=== PATIENT | female | born 1970 | race Native Hawaiian/Other Pacific Islander ===

== ENCOUNTER 2019-04-04 07:38 | Outpatient (CLI) | payer OTHER ==
[2019-04-04 07:57] LABS: PLATELET COUNT 236 K/uL (152-353)
[2019-04-04 08:19] LABS: POTASSIUM 4.3 mmol/L (3.6-5.2)
== END 2019-04-04 19:36 | disposition home or self-care (01) ==
LOC: LABW 07:38
PROVIDERS: Internal Medicine
DX: E11.9 Type 2 diabetes mellitus without complications (principal); E78.00 Pure hypercholesterolemia, unspecified
CPT/HCPCS: 80053; 80061; 81000; 82043; 82570; 83036; 84439; 84443; 85027

== ENCOUNTER 2019-04-10 14:30 | Outpatient (CLI) | payer OTHER | END 2019-04-10 20:32 | disposition home or self-care (01) | LOC: RAD 14:30 | DX: M54.2 Cervicalgia (principal); M54.5 Low back pain ==

== ENCOUNTER 2019-09-24 08:17 | Day surgery (SDC) | payer OTHER ==
[~2019-09-24] VITALS: Ht 157.5 cm; Wt 79.4 kg
== END 2019-09-24 12:24 | disposition home or self-care (01) ==
LOC: OR 08:17
PROC: 3E0R33Z Introduction of Anti-inflammatory into Spinal Canal, Percutaneous Approach (ICD-10-PCS; principal; 2019-09-24)
PROC: B01BYZZ Fluoroscopy of Spinal Cord using Other Contrast (ICD-10-PCS; 2019-09-24)
DX: M50.123 Cervical disc disorder at C6-C7 level with radiculopathy (principal)
CPT/HCPCS: J1020

== ENCOUNTER 2019-09-26 09:43 | Outpatient (CLI) | payer OTHER | END 2019-09-26 19:17 | disposition home or self-care (01) | LOC: MAMMO 09:43 | DX: Z12.31 Encounter for screening mammogram for malignant neoplasm of breast (principal) ==

== ENCOUNTER 2019-10-22 10:14 | Day surgery (SDC) | payer OTHER ==
[~2019-10-22] VITALS: Ht 30.5 cm; Wt 0.5 kg
== END 2019-10-22 10:53 | disposition home or self-care (01) ==
LOC: OR 10:14
PROC: 3E0R33Z Introduction of Anti-inflammatory into Spinal Canal, Percutaneous Approach (ICD-10-PCS; principal; 2019-10-22)
PROC: B01BYZZ Fluoroscopy of Spinal Cord using Other Contrast (ICD-10-PCS; 2019-10-22)
DX: M50.123 Cervical disc disorder at C6-C7 level with radiculopathy (principal); M50.122 Cervical disc disorder at C5-C6 level with radiculopathy
CPT/HCPCS: J1020

== ENCOUNTER 2019-12-30 09:42 | Outpatient (CLI) | payer OTHER ==
[2019-12-30 10:01] LABS: PLATELET COUNT 283 K/uL (152-353)
[2019-12-30 10:32] LABS: POTASSIUM 4.5 mmol/L (3.6-5.2)
== END 2019-12-30 23:23 | disposition home or self-care (01) ==
LOC: LABW 09:42
PROVIDERS: Internal Medicine
DX: Z00.00 Encounter for general adult medical examination without abnormal findings (principal); I10 Essential (primary) hypertension; E11.9 Type 2 diabetes mellitus without complications; E78.00 Pure hypercholesterolemia, unspecified; R53.83 Other fatigue; R53.81 Other malaise; Z79.899 Other long term (current) drug therapy
CPT/HCPCS: 36415; 80053; 80061; 83036; 84443; 85027

== ENCOUNTER 2020-02-17 08:57 | Outpatient (CLI) | payer OTHER ==
[2020-02-17 09:42] LABS: POTASSIUM 3.9 mmol/L (3.6-5.2)
== END 2020-02-17 19:33 | disposition home or self-care (01) ==
LOC: LABW 08:57
PROVIDERS: ATTEND Internal Medicine
DX: N17.9 Acute kidney failure, unspecified (principal); R10.9 Unspecified abdominal pain
CPT/HCPCS: 36415; 80048; 81000

== ENCOUNTER 2020-03-19 08:48 | Outpatient (CLI) | payer OTHER ==
[2020-03-19 09:26] LABS: PLATELET COUNT 272 K/uL (152-353)
== END 2020-03-19 20:38 | disposition home or self-care (01) ==
LOC: LABW 08:48
PROVIDERS: ATTEND Family Medicine
DX: R53.83 Other fatigue (principal); Z13.220 Encounter for screening for lipoid disorders; E53.8 Deficiency of other specified B group vitamins; R68.82 Decreased libido; E55.9 Vitamin D deficiency, unspecified
CPT/HCPCS: 36415; 80053; 80061; 82306; 82607; 82670; 83001; 84402; 84403; 84436; 84443; 84481; 85027; 86376

== ENCOUNTER 2020-05-13 13:21 | Outpatient (CLI) | payer OTHER ==
[~2020-05-13] VITALS: Ht 157.5 cm; Wt 75.7 kg
== END 2020-05-13 22:19 | disposition home or self-care (01) ==
LOC: DIABINF 13:21
PROVIDERS: ATTEND Internal Medicine Endocrinology, Diabetes & Metabolism
DX: E11.65 Type 2 diabetes mellitus with hyperglycemia (principal); E11.42 Type 2 diabetes mellitus with diabetic polyneuropathy; I10 Essential (primary) hypertension; E78.2 Mixed hyperlipidemia; E55.9 Vitamin D deficiency, unspecified; M79.7 Fibromyalgia; M50.33 Other cervical disc degeneration, cervicothoracic region; Z68.30 Body mass index [BMI] 30.0-30.9, adult
CPT/HCPCS: 82948; 96365; 96366; 96521; 99204; J1718; J1815

== ENCOUNTER 2020-05-14 12:52 | Outpatient (CLI) | payer OTHER ==
[~2020-05-14] VITALS: Ht 157.5 cm; Wt 75.7 kg
== END 2020-05-14 22:13 | disposition home or self-care (01) ==
LOC: DIABINF 12:52
PROVIDERS: ATTEND Internal Medicine Endocrinology, Diabetes & Metabolism
DX: E11.65 Type 2 diabetes mellitus with hyperglycemia (principal); E11.42 Type 2 diabetes mellitus with diabetic polyneuropathy; I10 Essential (primary) hypertension; E78.2 Mixed hyperlipidemia; E55.9 Vitamin D deficiency, unspecified; M79.7 Fibromyalgia; M50.33 Other cervical disc degeneration, cervicothoracic region; Z68.30 Body mass index [BMI] 30.0-30.9, adult; G44.209 Tension-type headache, unspecified, not intractable
CPT/HCPCS: 82948; 96365; 96366; 96521; 99214; J1718; J1815

== ENCOUNTER 2020-05-20 12:56 | Outpatient (CLI) | payer OTHER ==
[~2020-05-20] VITALS: Ht 157.5 cm; Wt 75.7 kg
== END 2020-05-20 22:05 | disposition home or self-care (01) ==
LOC: DIABINF 12:56
PROVIDERS: ATTEND Internal Medicine Endocrinology, Diabetes & Metabolism
DX: E11.65 Type 2 diabetes mellitus with hyperglycemia (principal); E11.42 Type 2 diabetes mellitus with diabetic polyneuropathy; I10 Essential (primary) hypertension; E78.2 Mixed hyperlipidemia; E55.9 Vitamin D deficiency, unspecified; M79.7 Fibromyalgia; M50.30 Other cervical disc degeneration, unspecified cervical region; Z68.30 Body mass index [BMI] 30.0-30.9, adult; G44.209 Tension-type headache, unspecified, not intractable
CPT/HCPCS: 82948; 96365; 96366; 96521; 99214; J1718; J1815

== ENCOUNTER 2020-05-21 10:48 | Outpatient (CLI) | payer OTHER ==
[~2020-05-21] VITALS: Ht 157.5 cm; Wt 75.7 kg
== END 2020-05-21 19:34 | disposition home or self-care (01) ==
LOC: DIABINF 10:48
PROVIDERS: ATTEND Internal Medicine Endocrinology, Diabetes & Metabolism
DX: E11.65 Type 2 diabetes mellitus with hyperglycemia (principal); E11.42 Type 2 diabetes mellitus with diabetic polyneuropathy; I10 Essential (primary) hypertension; E78.2 Mixed hyperlipidemia; E55.9 Vitamin D deficiency, unspecified; M79.7 Fibromyalgia; M50.30 Other cervical disc degeneration, unspecified cervical region; Z68.30 Body mass index [BMI] 30.0-30.9, adult; G44.209 Tension-type headache, unspecified, not intractable
CPT/HCPCS: 82948; 96365; 96366; 96521; 99214; J1718; J1815

== ENCOUNTER 2020-05-27 13:06 | Outpatient (CLI) | payer OTHER ==
[~2020-05-27] VITALS: Ht 157.5 cm; Wt 75.7 kg
== END 2020-05-27 22:44 | disposition home or self-care (01) ==
LOC: DIABINF 13:06
PROVIDERS: ATTEND Internal Medicine Endocrinology, Diabetes & Metabolism
DX: E11.65 Type 2 diabetes mellitus with hyperglycemia (principal); E11.42 Type 2 diabetes mellitus with diabetic polyneuropathy; E11.22 Type 2 diabetes mellitus with diabetic chronic kidney disease; N18.31 Chronic kidney disease, stage 3a; I10 Essential (primary) hypertension; E55.9 Vitamin D deficiency, unspecified; E78.2 Mixed hyperlipidemia; M79.7 Fibromyalgia; M50.30 Other cervical disc degeneration, unspecified cervical region; Z68.30 Body mass index [BMI] 30.0-30.9, adult; G44.209 Tension-type headache, unspecified, not intractable; Z87.898 Personal history of other specified conditions
CPT/HCPCS: 82948; 96365; 96366; 96521; 99214; J1718; J1815

== ENCOUNTER 2020-05-28 09:26 | Outpatient (CLI) | payer OTHER ==
[~2020-05-28] VITALS: Ht 157.5 cm; Wt 75.7 kg
== END 2020-05-28 21:27 | disposition home or self-care (01) ==
LOC: DIABINF 09:26
PROVIDERS: ATTEND Internal Medicine Endocrinology, Diabetes & Metabolism
DX: E11.65 Type 2 diabetes mellitus with hyperglycemia (principal); E11.42 Type 2 diabetes mellitus with diabetic polyneuropathy; I10 Essential (primary) hypertension; E78.2 Mixed hyperlipidemia; E55.9 Vitamin D deficiency, unspecified; M79.7 Fibromyalgia; M50.30 Other cervical disc degeneration, unspecified cervical region; Z68.30 Body mass index [BMI] 30.0-30.9, adult; G44.209 Tension-type headache, unspecified, not intractable; N18.31 Chronic kidney disease, stage 3a; I95.89 Other hypotension
CPT/HCPCS: 82948; 96365; 96366; 96521; 99214; J1718; J1815

== ENCOUNTER 2020-06-03 13:14 | Outpatient (CLI) | payer OTHER ==
[~2020-06-03] VITALS: Ht 157.5 cm; Wt 75.7 kg
== END 2020-06-03 20:30 | disposition home or self-care (01) ==
LOC: DIABINF 13:14
PROVIDERS: ATTEND Internal Medicine Endocrinology, Diabetes & Metabolism
DX: E11.65 Type 2 diabetes mellitus with hyperglycemia (principal); E11.42 Type 2 diabetes mellitus with diabetic polyneuropathy; I10 Essential (primary) hypertension; E78.2 Mixed hyperlipidemia; E55.9 Vitamin D deficiency, unspecified; M79.7 Fibromyalgia; M50.30 Other cervical disc degeneration, unspecified cervical region; Z68.30 Body mass index [BMI] 30.0-30.9, adult; G44.209 Tension-type headache, unspecified, not intractable; N18.31 Chronic kidney disease, stage 3a; I95.89 Other hypotension
CPT/HCPCS: 82948; 96365; 96366; 96521; 99214; J1718; J1815

== ENCOUNTER 2020-06-10 12:37 | Outpatient (CLI) | payer OTHER ==
[~2020-06-10] VITALS: Ht 157.5 cm; Wt 76.7 kg
== END 2020-06-10 21:34 | disposition home or self-care (01) ==
LOC: DIABINF 12:37
PROVIDERS: ATTEND Internal Medicine Endocrinology, Diabetes & Metabolism
DX: E11.65 Type 2 diabetes mellitus with hyperglycemia (principal); E11.42 Type 2 diabetes mellitus with diabetic polyneuropathy; I10 Essential (primary) hypertension; E78.2 Mixed hyperlipidemia; E55.9 Vitamin D deficiency, unspecified; M79.7 Fibromyalgia; M50.30 Other cervical disc degeneration, unspecified cervical region; Z68.30 Body mass index [BMI] 30.0-30.9, adult; G44.209 Tension-type headache, unspecified, not intractable; N18.31 Chronic kidney disease, stage 3a; I95.89 Other hypotension
CPT/HCPCS: 82948; 96365; 96366; 96521; 99214; J1718; J1815

== ENCOUNTER 2020-06-17 12:28 | Outpatient (CLI) | payer OTHER ==
[~2020-06-17] VITALS: Ht 157.5 cm; Wt 75.7 kg
== END 2020-06-17 21:27 | disposition home or self-care (01) ==
LOC: DIABINF 12:28
PROVIDERS: ATTEND Internal Medicine Endocrinology, Diabetes & Metabolism
DX: E11.65 Type 2 diabetes mellitus with hyperglycemia (principal); E11.42 Type 2 diabetes mellitus with diabetic polyneuropathy; I10 Essential (primary) hypertension; E78.2 Mixed hyperlipidemia; E55.9 Vitamin D deficiency, unspecified; M79.7 Fibromyalgia; M50.30 Other cervical disc degeneration, unspecified cervical region; Z68.30 Body mass index [BMI] 30.0-30.9, adult; G44.209 Tension-type headache, unspecified, not intractable; N18.31 Chronic kidney disease, stage 3a; I95.89 Other hypotension
CPT/HCPCS: 82948; 96365; 96366; 96521; 99213; J1718; J1815

== ENCOUNTER 2020-06-25 13:04 | Outpatient (CLI) | payer OTHER ==
[~2020-06-25] VITALS: Ht 157.5 cm; Wt 75.7 kg
== END 2020-06-25 20:36 | disposition home or self-care (01) ==
LOC: DIABINF 13:04
PROVIDERS: ATTEND Internal Medicine Endocrinology, Diabetes & Metabolism
DX: E11.65 Type 2 diabetes mellitus with hyperglycemia (principal); E11.42 Type 2 diabetes mellitus with diabetic polyneuropathy; I10 Essential (primary) hypertension; E78.2 Mixed hyperlipidemia; E55.9 Vitamin D deficiency, unspecified; M79.7 Fibromyalgia; M50.30 Other cervical disc degeneration, unspecified cervical region; Z68.30 Body mass index [BMI] 30.0-30.9, adult; G44.209 Tension-type headache, unspecified, not intractable; N18.31 Chronic kidney disease, stage 3a; I95.89 Other hypotension
CPT/HCPCS: 82948; 96365; 96366; 96521; 99214; J1718; J1815

== ENCOUNTER 2020-07-01 12:37 | Outpatient (CLI) | payer OTHER ==
[~2020-07-01] VITALS: Ht 157.5 cm; Wt 66.7 kg
== END 2020-07-01 19:22 | disposition home or self-care (01) ==
LOC: DIABINF 12:37
PROVIDERS: ATTEND Internal Medicine Endocrinology, Diabetes & Metabolism
DX: E11.65 Type 2 diabetes mellitus with hyperglycemia (principal); E11.42 Type 2 diabetes mellitus with diabetic polyneuropathy; I10 Essential (primary) hypertension; E78.2 Mixed hyperlipidemia; E55.9 Vitamin D deficiency, unspecified; M79.7 Fibromyalgia; M50.30 Other cervical disc degeneration, unspecified cervical region; Z68.30 Body mass index [BMI] 30.0-30.9, adult; G44.209 Tension-type headache, unspecified, not intractable; N18.31 Chronic kidney disease, stage 3a
CPT/HCPCS: 82948; 96365; 96366; 96521; J1815; J1817

== ENCOUNTER 2020-07-08 12:32 | Outpatient (CLI) | payer OTHER ==
[~2020-07-08] VITALS: Ht 157.5 cm; Wt 75.7 kg
== END 2020-07-08 21:12 | disposition home or self-care (01) ==
LOC: DIABINF 12:32
PROVIDERS: ATTEND Internal Medicine Endocrinology, Diabetes & Metabolism
DX: E11.65 Type 2 diabetes mellitus with hyperglycemia (principal); E11.42 Type 2 diabetes mellitus with diabetic polyneuropathy; I10 Essential (primary) hypertension; E78.2 Mixed hyperlipidemia; E55.9 Vitamin D deficiency, unspecified; M79.7 Fibromyalgia; M50.30 Other cervical disc degeneration, unspecified cervical region; Z68.30 Body mass index [BMI] 30.0-30.9, adult; G44.209 Tension-type headache, unspecified, not intractable; N18.31 Chronic kidney disease, stage 3a; I95.89 Other hypotension
CPT/HCPCS: 82948; 96365; 96366; 96521; J1815; J1817

== ENCOUNTER 2020-07-15 12:23 | Outpatient (CLI) | payer OTHER ==
[~2020-07-15] VITALS: Ht 157.5 cm; Wt 75.7 kg
== END 2020-07-15 21:33 | disposition home or self-care (01) ==
LOC: DIABINF 12:23
PROVIDERS: ATTEND Internal Medicine Endocrinology, Diabetes & Metabolism
DX: E11.65 Type 2 diabetes mellitus with hyperglycemia (principal); E11.42 Type 2 diabetes mellitus with diabetic polyneuropathy; I10 Essential (primary) hypertension; E78.2 Mixed hyperlipidemia; E55.9 Vitamin D deficiency, unspecified; M79.7 Fibromyalgia; M50.30 Other cervical disc degeneration, unspecified cervical region; Z68.30 Body mass index [BMI] 30.0-30.9, adult; G44.209 Tension-type headache, unspecified, not intractable; N18.31 Chronic kidney disease, stage 3a; I95.89 Other hypotension
CPT/HCPCS: 82948; 96365; 96366; 96521; J1815; J1817

== ENCOUNTER 2020-07-21 12:15 | Outpatient (CLI) | payer OTHER ==
[~2020-07-21] VITALS: Ht 157.5 cm; Wt 75.7 kg
== END 2020-07-21 22:07 | disposition home or self-care (01) ==
LOC: DIABINF 12:15
PROVIDERS: ATTEND Nurse Practitioner
DX: E11.65 Type 2 diabetes mellitus with hyperglycemia (principal); E11.42 Type 2 diabetes mellitus with diabetic polyneuropathy; I10 Essential (primary) hypertension; E78.2 Mixed hyperlipidemia; E55.9 Vitamin D deficiency, unspecified; M79.7 Fibromyalgia; M50.30 Other cervical disc degeneration, unspecified cervical region; Z68.30 Body mass index [BMI] 30.0-30.9, adult; G44.209 Tension-type headache, unspecified, not intractable; N18.31 Chronic kidney disease, stage 3a; I95.89 Other hypotension; R25.2 Cramp and spasm
CPT/HCPCS: 82948; 96365; 96366; 96521; J1815; J1817

== ENCOUNTER 2020-07-29 12:55 | Outpatient (CLI) | payer OTHER ==
[~2020-07-29] VITALS: Ht 157.5 cm; Wt 75.7 kg
== END 2020-07-29 21:06 | disposition home or self-care (01) ==
LOC: DIABINF 12:55
PROVIDERS: ATTEND Internal Medicine Endocrinology, Diabetes & Metabolism
DX: E11.65 Type 2 diabetes mellitus with hyperglycemia (principal); E11.42 Type 2 diabetes mellitus with diabetic polyneuropathy; I10 Essential (primary) hypertension; E78.2 Mixed hyperlipidemia; E55.9 Vitamin D deficiency, unspecified; M79.7 Fibromyalgia; M50.30 Other cervical disc degeneration, unspecified cervical region; Z68.30 Body mass index [BMI] 30.0-30.9, adult; N18.31 Chronic kidney disease, stage 3a; R25.2 Cramp and spasm
CPT/HCPCS: 82948; 96365; 96366; 96521; J1815; J1817

== ENCOUNTER 2020-07-30 14:28 | Outpatient (CLI) | payer OTHER | END 2020-07-30 23:50 | disposition home or self-care (01) | LOC: LABW 14:28 | PROVIDERS: ATTEND Family Medicine | DX: R53.83 Other fatigue (principal); R68.82 Decreased libido | CPT/HCPCS: 36415; 82670; 83001; 84402; 84403; 84436; 84481 ==

== ENCOUNTER 2020-08-04 08:42 | Outpatient (CLI) | payer OTHER ==
[2020-08-04 09:19] LABS: POTASSIUM 4.8 mmol/L (3.6-5.2)
== END 2020-08-04 22:40 | disposition home or self-care (01) ==
LOC: LABW 08:42
PROVIDERS: ATTEND Internal Medicine Endocrinology, Diabetes & Metabolism
DX: E11.42 Type 2 diabetes mellitus with diabetic polyneuropathy (principal); I10 Essential (primary) hypertension; E55.9 Vitamin D deficiency, unspecified; E78.2 Mixed hyperlipidemia; Z79.899 Other long term (current) drug therapy
CPT/HCPCS: 36415; 80053; 80061; 83036; 83525

== ENCOUNTER 2020-08-05 12:52 | Outpatient (CLI) | payer OTHER ==
[~2020-08-05] VITALS: Ht 157.5 cm; Wt 75.7 kg
== END 2020-08-05 23:04 | disposition home or self-care (01) ==
LOC: DIABINF 12:52
PROVIDERS: ATTEND Internal Medicine Endocrinology, Diabetes & Metabolism
DX: E11.65 Type 2 diabetes mellitus with hyperglycemia (principal); E11.42 Type 2 diabetes mellitus with diabetic polyneuropathy; I10 Essential (primary) hypertension; E78.2 Mixed hyperlipidemia; E55.9 Vitamin D deficiency, unspecified; M79.7 Fibromyalgia; M50.30 Other cervical disc degeneration, unspecified cervical region; Z68.30 Body mass index [BMI] 30.0-30.9, adult; N18.31 Chronic kidney disease, stage 3a; R25.2 Cramp and spasm
CPT/HCPCS: 82948; 96365; 96366; 96521; J1815; J1817

== ENCOUNTER 2020-08-12 13:02 | Outpatient (CLI) | payer OTHER ==
[~2020-08-12] VITALS: Ht 157.5 cm; Wt 77.6 kg
== END 2020-08-12 22:22 | disposition home or self-care (01) ==
LOC: DIABINF 13:02
PROVIDERS: ATTEND Internal Medicine Endocrinology, Diabetes & Metabolism
DX: E11.65 Type 2 diabetes mellitus with hyperglycemia (principal); M51.37 Other intervertebral disc degeneration, lumbosacral region; M79.7 Fibromyalgia; I10 Essential (primary) hypertension; E78.2 Mixed hyperlipidemia; K21.9 Gastro-esophageal reflux disease without esophagitis
CPT/HCPCS: 82948; 96365; 96366; 96521; J1815; J1817

== ENCOUNTER 2020-08-19 12:57 | Outpatient (CLI) | payer OTHER ==
[~2020-08-19] VITALS: Ht 157.5 cm; Wt 71.2 kg
== END 2020-08-19 16:00 | disposition home or self-care (01) ==
LOC: DIABINF 12:57
PROVIDERS: ATTEND Internal Medicine Endocrinology, Diabetes & Metabolism
DX: E11.65 Type 2 diabetes mellitus with hyperglycemia (principal); M51.37 Other intervertebral disc degeneration, lumbosacral region; M79.7 Fibromyalgia; I10 Essential (primary) hypertension; E78.2 Mixed hyperlipidemia; K21.9 Gastro-esophageal reflux disease without esophagitis
CPT/HCPCS: 82948; 96365; 96366; 96521; J1815; J1817; J2405

== ENCOUNTER 2020-08-24 13:03 | Outpatient (CLI) | payer OTHER ==
[~2020-08-24] VITALS: Ht 157.5 cm; Wt 71.2 kg
== END 2020-08-24 16:00 | disposition home or self-care (01) ==
LOC: DIABINF 13:03
PROVIDERS: ATTEND Internal Medicine Endocrinology, Diabetes & Metabolism
DX: E11.65 Type 2 diabetes mellitus with hyperglycemia (principal); M51.37 Other intervertebral disc degeneration, lumbosacral region; M79.7 Fibromyalgia; I10 Essential (primary) hypertension; E78.2 Mixed hyperlipidemia; K21.9 Gastro-esophageal reflux disease without esophagitis
CPT/HCPCS: 82948; 96365; 96366; 96521; J1815; J1817

== ENCOUNTER 2020-09-02 12:58 | Outpatient (CLI) | payer OTHER ==
[~2020-09-02] VITALS: Ht 157.5 cm; Wt 79.8 kg
== END 2020-09-02 22:18 | disposition home or self-care (01) ==
LOC: DIABINF 12:58
PROVIDERS: ATTEND Internal Medicine Endocrinology, Diabetes & Metabolism
DX: E11.65 Type 2 diabetes mellitus with hyperglycemia (principal); M51.37 Other intervertebral disc degeneration, lumbosacral region; M79.7 Fibromyalgia; I10 Essential (primary) hypertension; E78.2 Mixed hyperlipidemia; K21.9 Gastro-esophageal reflux disease without esophagitis
CPT/HCPCS: 82948; 96365; 96366; 96521; J1815; J1817

== ENCOUNTER 2020-09-09 13:07 | Outpatient (CLI) | payer OTHER ==
[~2020-09-09] VITALS: Ht 157.5 cm; Wt 77.6 kg
== END 2020-09-09 21:40 | disposition home or self-care (01) ==
LOC: DIABINF 13:07
PROVIDERS: ATTEND Internal Medicine Endocrinology, Diabetes & Metabolism
DX: E11.65 Type 2 diabetes mellitus with hyperglycemia (principal); M51.37 Other intervertebral disc degeneration, lumbosacral region; M79.7 Fibromyalgia; I10 Essential (primary) hypertension; E78.2 Mixed hyperlipidemia; K21.9 Gastro-esophageal reflux disease without esophagitis
CPT/HCPCS: 82948; 96365; 96366; 96521; J1815; J1817

== ENCOUNTER 2020-09-16 12:52 | Outpatient (CLI) | payer OTHER ==
[~2020-09-16] VITALS: Ht 157.5 cm; Wt 77.6 kg
== END 2020-09-16 20:59 | disposition home or self-care (01) ==
LOC: DIABINF 12:52
PROVIDERS: ATTEND Internal Medicine Endocrinology, Diabetes & Metabolism
DX: E11.65 Type 2 diabetes mellitus with hyperglycemia (principal); M51.37 Other intervertebral disc degeneration, lumbosacral region; M79.7 Fibromyalgia; I10 Essential (primary) hypertension; E78.2 Mixed hyperlipidemia; K21.9 Gastro-esophageal reflux disease without esophagitis
CPT/HCPCS: 82948; 96365; 96366; 96521; J1815; J1817

== ENCOUNTER 2020-09-23 13:10 | Outpatient (CLI) | payer OTHER ==
[~2020-09-23] VITALS: Ht 157.5 cm; Wt 77.6 kg
== END 2020-09-23 23:38 | disposition home or self-care (01) ==
LOC: DIABINF 13:10
PROVIDERS: ATTEND Internal Medicine Endocrinology, Diabetes & Metabolism
DX: E11.65 Type 2 diabetes mellitus with hyperglycemia (principal); E11.42 Type 2 diabetes mellitus with diabetic polyneuropathy; I10 Essential (primary) hypertension; E78.2 Mixed hyperlipidemia; E55.9 Vitamin D deficiency, unspecified; M79.7 Fibromyalgia; M50.30 Other cervical disc degeneration, unspecified cervical region; Z68.30 Body mass index [BMI] 30.0-30.9, adult; N18.31 Chronic kidney disease, stage 3a
CPT/HCPCS: 82948; 96365; 96366; 96521; J1815; J1817

== ENCOUNTER 2020-10-01 13:15 | Outpatient (CLI) | payer OTHER ==
[~2020-10-01] VITALS: Ht 157.5 cm; Wt 77.6 kg
== END 2020-10-01 20:35 | disposition home or self-care (01) ==
LOC: DIABINF 13:15
PROVIDERS: ATTEND Internal Medicine Endocrinology, Diabetes & Metabolism
DX: E11.65 Type 2 diabetes mellitus with hyperglycemia (principal); Z87.898 Personal history of other specified conditions; M79.7 Fibromyalgia; I10 Essential (primary) hypertension; E78.2 Mixed hyperlipidemia; K21.9 Gastro-esophageal reflux disease without esophagitis
CPT/HCPCS: 82948; 96365; 96366; 96521; J1815; J1817

== ENCOUNTER 2020-10-07 13:19 | Outpatient (CLI) | payer OTHER ==
[~2020-10-07] VITALS: Ht 157.5 cm; Wt 77.6 kg
== END 2020-10-07 19:03 | disposition home or self-care (01) ==
LOC: DIABINF 13:19
PROVIDERS: ATTEND Internal Medicine Endocrinology, Diabetes & Metabolism
DX: E11.65 Type 2 diabetes mellitus with hyperglycemia (principal); Z87.898 Personal history of other specified conditions; M79.7 Fibromyalgia; I10 Essential (primary) hypertension; E78.2 Mixed hyperlipidemia; K21.9 Gastro-esophageal reflux disease without esophagitis
CPT/HCPCS: 82948; 96365; 96366; 96521; J1815; J1817

== ENCOUNTER 2020-10-14 12:52 | Outpatient (CLI) | payer OTHER ==
[~2020-10-14] VITALS: Ht 157.5 cm; Wt 77.6 kg
== END 2020-10-14 21:14 | disposition home or self-care (01) ==
LOC: DIABINF 12:52
PROVIDERS: ATTEND Internal Medicine Endocrinology, Diabetes & Metabolism
DX: E11.65 Type 2 diabetes mellitus with hyperglycemia (principal); Z87.898 Personal history of other specified conditions; M79.7 Fibromyalgia; I10 Essential (primary) hypertension; E78.2 Mixed hyperlipidemia; K21.9 Gastro-esophageal reflux disease without esophagitis
CPT/HCPCS: J1815

== ENCOUNTER 2020-11-24 08:32 | Outpatient (CLI) | payer OTHER | END 2020-11-24 19:06 | disposition home or self-care (01) | LOC: MAMMO 08:32 | PROVIDERS: ATTEND Obstetrics & Gynecology | DX: Z12.31 Encounter for screening mammogram for malignant neoplasm of breast (principal); Z13.820 Encounter for screening for osteoporosis ==

== ENCOUNTER 2021-01-27 07:44 | Outpatient (CLI) | payer OTHER | END 2021-01-27 20:11 | disposition home or self-care (01) | LOC: LABW 07:44 | PROVIDERS: ATTEND Internal Medicine | DX: E11.9 Type 2 diabetes mellitus without complications (principal) | CPT/HCPCS: 36415; 83036 ==

== ENCOUNTER 2021-07-19 09:01 | Outpatient (CLI) | payer OTHER ==
[2021-07-19 09:18] LABS: PLATELET COUNT 255 K/uL (152-353)
[2021-07-19 10:01] LABS: POTASSIUM 4.4 mmol/L (3.6-5.2)
== END 2021-07-19 18:57 | disposition home or self-care (01) ==
LOC: LABW 09:01
PROVIDERS: ATTEND Nurse Practitioner Primary Care
DX: R53.83 Other fatigue (principal); Z13.220 Encounter for screening for lipoid disorders; E53.8 Deficiency of other specified B group vitamins; E11.9 Type 2 diabetes mellitus without complications; R68.82 Decreased libido; E55.9 Vitamin D deficiency, unspecified
CPT/HCPCS: 36415; 80053; 80061; 82306; 82607; 82670; 83001; 83002; 84402; 84403; 84436; 84443; 84481; 85027; 86376

== ENCOUNTER 2021-10-28 09:31 | Outpatient (CLI) | payer OTHER | END 2021-10-28 19:31 | disposition home or self-care (01) | LOC: LABW 09:31 | PROVIDERS: ATTEND Family Medicine | DX: E11.65 Type 2 diabetes mellitus with hyperglycemia (principal) | CPT/HCPCS: 36415; 83036 ==

== ENCOUNTER 2021-12-01 14:01 | Outpatient (CLI) | payer OTHER | END 2021-12-01 19:13 | disposition home or self-care (01) | LOC: MAMMO 14:01 | PROVIDERS: ATTEND Obstetrics & Gynecology | DX: Z12.31 Encounter for screening mammogram for malignant neoplasm of breast (principal) ==

== ENCOUNTER 2022-02-15 08:56 | Outpatient (CLI) | payer OTHER | END 2022-02-15 19:02 | disposition home or self-care (01) | LOC: LABW 08:56 | PROVIDERS: ATTEND Nurse Practitioner Family | DX: R53.83 Other fatigue (principal); E11.9 Type 2 diabetes mellitus without complications | CPT/HCPCS: 36415; 83036; 84436; 84443; 84481; 86376 ==

== ENCOUNTER 2022-07-12 08:34 | Outpatient (CLI) | payer OTHER | END 2022-07-12 19:56 | disposition home or self-care (01) | LOC: LABW 08:34 | PROVIDERS: ATTEND Nurse Practitioner Primary Care | DX: E11.65 Type 2 diabetes mellitus with hyperglycemia (principal); R53.83 Other fatigue | CPT/HCPCS: 36415; 83036; 84436; 84443; 84481; 86376 ==